=== PATIENT | female | born 1930 | race Caucasian/White ===

== ENCOUNTER 2017-06-10 12:02 | Outpatient (CLI) | payer OTHER | END 2017-06-10 13:00 | disposition home or self-care (01) | LOC: NUCLEAR 12:02 | DX: J30.9 Allergic rhinitis, unspecified (principal); I70.0 Atherosclerosis of aorta; Z68.31 Body mass index [BMI] 31.0-31.9, adult; J44.9 Chronic obstructive pulmonary disease, unspecified; I87.2 Venous insufficiency (chronic) (peripheral); L98.9 Disorder of the skin and subcutaneous tissue, unspecified; J45.20 Mild intermittent asthma, uncomplicated; K21.9 Gastro-esophageal reflux disease without esophagitis; R31.9 Hematuria, unspecified; Z96.662 Presence of left artificial ankle joint; E78.2 Mixed hyperlipidemia; E66.9 Obesity, unspecified; M85.80 Other specified disorders of bone density and structure, unspecified site; Z02.89 Encounter for other administrative examinations; M25.552 Pain in left hip; M72.2 Plantar fascial fibromatosis; Z13.1 Encounter for screening for diabetes mellitus; S63.207A Unspecified subluxation of left little finger, initial encounter; M81.0 Age-related osteoporosis without current pathological fracture; E78.1 Pure hyperglyceridemia ==

== ENCOUNTER 2017-07-17 14:08 | Outpatient (CLI) | payer OTHER | END 2017-07-17 14:14 | disposition home or self-care (01) | LOC: RAD 14:08 | DX: M19.042 Primary osteoarthritis, left hand (principal); M19.041 Primary osteoarthritis, right hand; M19.032 Primary osteoarthritis, left wrist; M19.031 Primary osteoarthritis, right wrist ==

== ENCOUNTER 2018-05-20 14:43 | Outpatient (CLI) | payer OTHER | END 2018-05-20 14:58 | disposition home or self-care (01) | LOC: RAD 14:43 | DX: M25.512 Pain in left shoulder (principal) ==

== ENCOUNTER → 2019-03-29 | Outpatient (CLI) | payer OTHER | END | disposition home or self-care (01) | LOC: RAD 14:22 | DX: R05 Cough (principal) ==

== ENCOUNTER 2019-07-13 14:11 | Outpatient (CLI) | payer OTHER | END 2019-07-13 15:00 | disposition home or self-care (01) | LOC: NUCLEAR 14:11 | DX: M85.89 Other specified disorders of bone density and structure, multiple sites (principal); J30.9 Allergic rhinitis, unspecified; I70.0 Atherosclerosis of aorta; Z68.31 Body mass index [BMI] 31.0-31.9, adult; J44.9 Chronic obstructive pulmonary disease, unspecified; I87.2 Venous insufficiency (chronic) (peripheral); L98.8 Other specified disorders of the skin and subcutaneous tissue; J45.20 Mild intermittent asthma, uncomplicated; K21.9 Gastro-esophageal reflux disease without esophagitis; R31.9 Hematuria, unspecified; Z96.652 Presence of left artificial knee joint; E78.2 Mixed hyperlipidemia; E66.8 Other obesity; Z02.89 Encounter for other administrative examinations; M25.562 Pain in left knee; M72.2 Plantar fascial fibromatosis; Z13.1 Encounter for screening for diabetes mellitus; S63.207A Unspecified subluxation of left little finger, initial encounter ==

== ENCOUNTER 2020-04-02 14:53 | Emergency (ER) | payer OTHER ==
[~2020-04-02] VITALS: Ht 160 cm; Wt 72.6 kg
== END 2020-04-02 17:12 | disposition home or self-care (01) ==
LOC: ER 14:53
DX: S61.211S Laceration without foreign body of left index finger without damage to nail, sequela (principal); W45.8XXS Other foreign body or object entering through skin, sequela

== ENCOUNTER 2020-07-06 14:39 | Outpatient (CLI) | payer OTHER | END 2020-07-06 14:46 | disposition HB | LOC: RAD 14:39 | DX: T84.84XD Pain due to internal orthopedic prosthetic devices, implants and grafts, subsequent encounter (principal); M25.561 Pain in right knee; M25.562 Pain in left knee ==

== ENCOUNTER 2020-12-11 15:29 | Emergency (ER) | payer OTHER ==
[~2020-12-11] VITALS: Ht 154.9 cm; Wt 70.3 kg
[2020-12-11] MEDS ORDERED: SINGULAIR10 MG (15:38)
[2020-12-11] MEDS ORDERED: SIMVASTATIN5 MG (15:39)
== END 2020-12-11 19:56 | disposition home or self-care (01) ==
LOC: ER 15:29
DX: K52.89 Other specified noninfective gastroenteritis and colitis (principal)

== ENCOUNTER 2021-05-08 12:17 | Outpatient (CLI) | payer OTHER ==
[~2021-05-08 12:17] MED LIST: SIMVASTATIN5 MG; SINGULAIR10 MG
== END 2021-05-08 12:32 | disposition home or self-care (01) ==
LOC: MAMO-SONO 12:17
PROVIDERS: ATTEND General Practice
DX: D48.62 Neoplasm of uncertain behavior of left breast (principal); D48.61 Neoplasm of uncertain behavior of right breast; Z12.31 Encounter for screening mammogram for malignant neoplasm of breast

== ENCOUNTER 2021-08-07 13:30 | Outpatient (CLI) | payer OTHER | END 2021-08-07 13:42 | disposition home or self-care (01) | LOC: NUCLEAR 13:30 | PROVIDERS: ATTEND General Practice | DX: M81.0 Age-related osteoporosis without current pathological fracture (principal) ==

== ENCOUNTER 2021-12-19 15:18 | Outpatient (CLI) | payer OTHER | END 2021-12-19 15:37 | disposition home or self-care (01) | LOC: RAD 15:18 | PROVIDERS: ATTEND General Practice | DX: J44.9 Chronic obstructive pulmonary disease, unspecified (principal); I70.0 Atherosclerosis of aorta; I51.7 Cardiomegaly ==